=== PATIENT | male | born 1960 | race Caucasian/White ===

== ENCOUNTER → 2021-04-25 | Emergency (ER) | payer BC, OTHER ==
[~2021-04-25] VITALS: Ht 177.8 cm; Wt 86.1 kg
[~2021-04-25] MED LIST: ACETAMINOPHEN 500 MG TAB (TYLENOL) PO ONE; ACHYD1T PO; CIPR-17 PO; CPR500T PO; HYOS0.1216 PO; IBP800T PO; NITR-33 PO; PHEN200T27 PO; TETANUS,DIPTH,PERTUSS P/F (BOOSTRIX) 0.5 ML VIAL IM ONE
--- OUTSIDE RECORDS SUMMARY | 2021-04-25 09:28 | XMS REPORT | Clinical Summary ---
Author Author [facility] Organization [facility] Address Unknown Phone Unavailable Care Team Providers Care Director Of Home Economics Name Role Phone Damian Esposito MD Unavailable Riya Townsend RN Unavailable Unavailable Steve Lowe RN Unavailable Unavailable Maureen Royal RN Unavailable Unavailable Janna CAIN PA-C, James R Unavailable [phone] Pamela Mcdaniel MD PCP Source Comments Some departments are not documenting in the electronic medical record. If you d o not see the information that you expected, contact Release of Information in [facility] Information Management department at [phone] for further assistan ce in locating additional records.[facility] Allergies Comments Active Allergy Reactions Severity Noted Date Dust SNEEZING 06/28/2013 Pollen SNEEZING 06/28/2013 Medications End Date Status Medication Sig Dispensed Refills Start Date Active enalapril (VASOTEC) 10 mg Take 10 mg by 0 tablet mouth every morning. Active amLODIPine (NORVASC) 5 mg Take 5 mg by 0 tablet mouth every morning. Active potassium citrate Take one 60 tablet 5 12/20/19 2 (UROCIT-K) 10 mEq (1,080 tablet by 1 mg) tablet mouth twice daily with meals. Take with food. Active Problems Problem Noted Date Kidney stone 09/02/2013 Nephrolithiasis Overview: Formatting of this note might be differ ent from the original. (L) Renal ESWL x3; Apr 2013 -- Jun. 201 4; Dr. Shah. (L) URS w/ Laser Lithotripsy, Stent Exc hange -- 07/16/2013; Dr. Esposito. (L) PCNL -- 09/03/2013; Dr. Esposito 11/22/13: Started on K Cit, Litholink re viewed Renal scan with lasix shows non-functio antonio left kidney, patient asymptomatic 04/14/14: KUB shows 4 mm and 6 mm kidne y stone 04/2015: CT scan shows multiple small l eft kidney and ureteral stones with atrophic left kidney. No right kidney stones. Creatinine stable, but slightly elevated at 1.33 06/2015: RBUS small cyst with otherwise normal appearance of the right kidney. Left kidney stable. Creatinine 1.64 (1.33). 10/2015: Cr 1.6, KUB stable 04/11/16: Creatinine 1.41. Ultrasound st able. Blood pressure better controlled. 11/04/16 - Creatinine 1.61. KUB stable. Asymptomatic 05/19/2016: Creatinine pending. Ultrasoun d stable. Blood pressure better controlled on Amlodipine/Lisinopril. No recent kidney stones. 05/25/18: Patient with stable creatinine at 1.24. No pain. Ultrasound stable. Blood pressure better controll ed. 05/24/2019: Patient with slightly elevat ed creatinine to 1.55, but he did go skiing last week and may not have staye d well hydrated. Ultrasound stable with increased atrophy of kidney. No s tones on the right. 05/22/2020: Patient doing well. Blood pressure controlled. Creatinine 1.44. PSA normal at 0.42. Ultrasound without RIGHT stones. Atrophy of LEFT kidney. L ast Assessment & Plan: Formatting of this note might be differ ent from the original. Patient doing well. No issues. -- Continue urocit K -- Continue good fluid intake and low s odium -- F/U one year with labs (to include P SA and testosterone) and ultrasound -- All questions answered HTN (hypertension) Overview: Formatting of this note might be differ ent from the original. Patient with severe hypertension, but m ostly related to obstructed kidney with Steinstrasse. L ast Assessment & Plan: Formatting of this note might be differ ent from the original. Patient has not seen Dr. Weldon since s tarting blood pressure medications. His blood pressure is a little high toadam ay. -- F/U with Dr. Weldon for blood pressu re management -- Continue to monitor Surgical History Surgery Date Site/Laterality Comments HX VASECTOMY ~ 24 yrs ago HX TONSILLECTOMY ~ 1971 KIDNEY STONE SURGERY 2012 (L) Renal ESWL; D r. Alyssa KIDNEY STONE SURGERY 2012 (L) Renal ESWL; D r. Alyssa KIDNEY STONE SURGERY 2013 (L) Renal ESWL; D r. Alyssa KIDNEY STONE SURGERY 07/16/2013 (L) Ureteroscopy w/ Laser Lithotripsy, Stone Extraction; Dr. Esposito KIDNEY STONE SURGERY 09/03/2013 (L) PCNL; Dr. Fransisco kessler -- pending AR CYSTO W/SIMPLE REMOVAL 09/30/2013 STONE & STENT Medical History Medical History Date Comments Nephrolithiasis HTN (hypertension) Neurofibromatosis (HCC) Family History Medical History Relation Name Comments Hypertension Father Heart Disease Maternal Grandfather Hypertension Mother Relation Name Status Comments Father Maternal Grandfather Mother Social History Date Tobacco Use Types Packs/Day Years Used Never Smoker Smokeless Tobacco: Never Used Comments Alcohol Use Standard Drinks/Week Yes 1 (1 standard drink = 0.6 o z pure alcohol) Sex Assigned at Date Recorded Not on file Last Filed Vital Signs Reading Time Taken Comments Vital Sign 122/85 05/22/2020 12:53 PM [employer] Blood Pressure 85 05/22/2020 12:53 PM [employer] Pulse 36.7 C (98.1 F) 05/22/2020 12:53 PM [employer] Temperature - - Respiratory Rate 99% 09/04/2013 7:07 AM CDT Oxygen Saturation - - Inhaled Oxygen Concentration 88.9 kg (196 lb) 05/22/2020 12:53 PM [employer] Weight 175.3 cm (5' 9") 05/22/2020 12:53 PM [employer] Height 28.94 05/22/2020 12:53 PM [employer] Body Mass Index Plan of Treatment Health Maintenance Due Date Last Done Comments HIV SCREENING 08/22/1975 DTAP/TDAP VACCINES (1 - 1978 Tdap) HEPATITIS C SCREENING 1978 PHYSICAL (COMPREHENSIVE) 1978 EXAM COLORECTAL CANCER 2010 SCREENING SHINGLES RECOMBINANT 2010 VACCINE (1 of 2) INFLUENZA VACCINE 12/10/2020 Results Not on filefrom Last 3 Months Insurance Type Payer Benefit Subscriber ID Effective Phone Address Plan / Dates Group [facility] [place] [id number] 2020-P [phone] [id number] [facility] [place] [phone] 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 needed Care Teams Start Date End Date Director Of Home Economics Relationship Specialty 05/22/20 Pamela Mcdaniel MD PCP - [address] [place] [address] 06/28/13 Damian Esposito MD Urology [address] [facility] [address] [place] [address] 07/02/13 Ryia Townsend, RN 07/16/13 Steve Lowe, OLLIE 08/10/13 Maureen Royal, OLLIE 08/22/13 Monty Saldivar III, Urology PA-[facility] [address] [facility] [address] [place] [address]
[2021-04-25 10:07] LABS: BASOPHILS % (AUTO) 0 % (0-10); EOSINOPHILS % (AUTO) 0 % (0-10); HEMATOCRIT 44 % (40-54); HEMOGLOBIN 15.2 g/dL (13.3-17.7); LYMPHOCYTES # (AUTO) 2.8 10^3/uL (1.0-4.0); LYMPHOCYTES % (AUTO) 31 % (12-44); MEAN CORPUSCULAR HEMOGLOBIN 31 pg (25-34); MEAN CORPUSCULAR HGB CONC 35 g/dL (32-36); MEAN CORPUSCULAR VOLUME 89 fL (80-99); MEAN PLATELET VOLUME 8.7 fL (9.0-12.2); MONOCYTES # (AUTO) 0.8 10^3/uL (0.0-1.0); MONOCYTES % (AUTO) 9 % (0-12); NEUTROPHILS # (AUTO) 5.3 10^3/uL (1.8-7.8); NEUTROPHILS % (AUTO) 59 % (42-75); PLATELET COUNT 318 10^3/uL (130-400)
[2021-04-25 10:22] LABS: ALBUMIN 4.2 GM/DL (3.2-4.5); BILIRUBIN,TOTAL 0.9 MG/DL (0.1-1.0); CALCIUM 9.4 MG/DL (8.5-10.1); CREATININE SERUM 1.52 MG/DL (0.60-1.30); POTASSIUM 3.8 MMOL/L (3.6-5.0); TOTAL PROTEIN 7.6 GM/DL (6.4-8.2)
--- NOTE | 2021-04-25 10:42 | Diagnostic Imaging Report ---
PROCEDURE: CT head, face, and cervical spine without contrast. TECHNIQUE: Multiple contiguous axial images were obtained through the head, neck, and facial bones without the use of intravenous contrast. Sagittal and coronal reformations through the cervical spine and facial bones were also performed. Auto Exposure Controls were utilized during the CT exam to meet ALARA standards for radiation dose reduction. INDICATION: Headache, fall; head, neck and face injury. COMPARISON: None. CT head: Ventricles are normal in size, shape and position. There is no midline shift or mass effect. There is no hemorrhage or evidence of acute ischemia. No extra axial fluid collection or mass is identified. There is no skull fracture. The mastoids and paranasal sinuses are clear. IMPRESSION: Negative CT head. CT face: There is chronic deviation of the nasal septum. The orbits are symmetric. The mandible is intact. The paranasal sinuses and mastoids are clear. There are no air-fluid levels to suggest hemorrhage. IMPRESSION: No facial fracture identified. CT cervical spine: Alignment is normal. There is no subluxation or fracture. Mild degenerative changes are present. There is no osseous lesion. Soft tissues are intact. IMPRESSION: No traumatic malalignment or fracture. Dictated by: Dictated on workstation # [id number]
--- NOTE | 2021-04-25 10:45 | Diagnostic Imaging Report ---
INDICATION: Fall, pelvic pain, hip pain. COMPARISON: None. FINDINGS: A single view of the pelvis demonstrates no fracture or dislocation. The articular surfaces are normal. No osseous lesion. IMPRESSION: No fracture identified. Dictated by: Dictated on workstation # [id number]
--- NOTE | 2021-04-25 10:46 | Diagnostic Imaging Report ---
INDICATION: Fall, chest pain COMPARISON: None. FINDINGS: Single view the chest demonstrates clear lungs bilaterally. The heart is normal. There is no pneumothorax but osseous structures normal. IMPRESSION: Negative chest. Dictated by: Dictated on workstation # [id number]
--- NOTE | 2021-04-25 10:55 | ED Trauma-Multisystem ---
General Chief Complaint: Trauma-Non Activation Stated Complaint: LOC, FACIAL LAC,L GROIN PAIN, FELL OFF ROOF Nursing Triage Note: patient arrives pov from scene of injury with a reported fall from a 12 foot roof. It is reported by spouse that patient passed out and fell off of the roof landing on his face. Patient is alert and oriented x2, but has no recolection of what happened or why he fell. c/o pain in his left groin and upper lip pain, dried blood is noted to patient bilateral hands with no obvious injury. Source of Information: Patient, Family Exam Limitations: No Limitations History of Present Illness Date Seen by Provider: Apr 25, 2021 Time Seen by Provider: 09:30 Initial Comments Patient is a 60-year-old male who presents to the emergency room by private vehicle from the scene in which he was doing some jim about 12 feet off the ground, possibly syncope and fell versus fell and had loss of consciousness. Patient does not recall any of the details of the event. He initially is alert and oriented on my evaluation. He does have some anterior facial pain to his nose and upper lip. He complains of some left groin discomfort. No back pain, abdominal pain, chest pain. He apparently did have a bit of a nosebleed prior to arrival. Cannot recall last tetanus immunization. Has a history of hypertension, states he is not on any blood thinners. His is available for further history. States that he was jim with 2 of their sons and she plans to get more information from them. He is not nauseous, no vomiting. Does complain of a mild headache. Arrives and is placed in a cervical collar. Is quite anxious with a collar in place. No recent illnesses. No fevers chills, cough or congestion. No Covid concerns. Solitary kidney. Follows with a pulmonary disease specialist at . All other review of systems reviewed and negative except as stated. Occurred: Just Prior to Arrival Severity: Mild Pain/Injury Location: Face, Pelvis (left groin) Loss of Consciousness: Brief (Seconds) Associated Symptoms (Fall): Confusion, Other (headache) Allergies and Home Medications Allergies Coded Allergies: No Known Drug Allergies (Unverified , 04/16/13) Patient Home Medication List Home Medication List Reviewed: Yes Hydrocodone Bit/Acetaminophen (Lorcet Plus 10/325 Mg) 1 Tab Tablet, 1-2 TAB PO Q4H PRN for PAIN Prescribed by: JUDY GEIGER on 04/21/13 1217 Hyoscyamine Sulfate (Levsin 0.125 Mg Tab) 0.125 Mg Tab, 1-2 EACH PO Q4H PRN for SPASMS Prescribed by: JUDY GEIGER on 04/21/13 1217 Ibuprofen (Motrin) 800 Mg Tablet, 800 MG PO Q6H PRN for PAIN, (Reported) Entered as Reported by: CHULA DELCID on 04/16/13 1058 Nitrofurantoin Macrocrystals (Macrodantin) 100 Mg Capsule, 1 EACH PO BID, (Reported) Entered as Reported by: JARED HODGES on 05/19/13 0916 Phenazopyridine Hcl (Pyridium) 200 Mg Tablet, 1 EACH PO TID PRN for SPASMS Prescribed by: JUDY GEIGER on 04/21/13 1217 Review of Systems Review of Systems Constitutional: see HPI Eyes: No Symptoms Reported Ears: No Symptoms Reported Nose: Pain Mouth: Other (upper lip) Throat: No Symptoms to Report Respiratory: no symptoms reported Cardiovascular: No Symptoms Reported Gastrointestinal: no symptoms reported Genitourinary: no symptoms reported Musculoskeletal: joint pain (left groin) Skin: no symptoms reported Psychiatric/Neurological: Anxiety All Other Systems Reviewed Negative Unless Noted: Yes Physical Exam Vital Signs Vital Signs - First Documented Height, Weight, BMI Height: '" Weight: 195lbs. oz. 88.806516ub; 27.00 BMI Method: General Appearance: WD/WN, Anxious Head: No Evidence of Injury Eyes: Bilateral Eye Normal Inspection, Bilateral Eye PERRL, Bilateral Eye EOMI Ears, Nose, Throat: Hearing Grossly Normal, No Evidence of ENT Injury, No Dental Injury, Other (A little bit of swelling, erythema abrasion noted over the nasal bridge, swelling and contusion to the upper lip. Patient states that teeth fit together well, demonstrates active range of motion of the jaw without discomfort. No intraoral injury is identified) Neck: Normal Inspection, Other (Patient examined initially in a cervical collar, no midline tenderness) Cardiovascular: Regular Rate, Rhythm, Normal Peripheral Pulses Respiratory: Lungs Clear, Normal Breath Sounds, No Accessory Muscle Use, No Respiratory Distress Gastrointestinal: Normal Bowel Sounds, Soft, Tenderness (Left inguinal region) Genital/Rectal: Normal Genital Exam; No Blood at Uretheral Meatus; Other (No scrotal hematomas are noted) Back: Normal Inspection, No Vertebral Tenderness Extremity: Normal Capillary Refill, Normal Inspection, Normal Range of Motion, Non Tender, No Calf Tenderness Neurologic/Psychiatric: Alert, Oriented x3, No Motor/Sensory Deficits, Normal 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, 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 Norm as Tested Skin: Normal Color, Warm/Dry Nori Coma Score Best Eye Response (Eastern): (4) Open Spontaneously Best Verbal Response (Eastern): (5) Oriented Best Motor Response (Eastern): (6) Obeys Commands Progress/Results/Core Measures Results/Orders Lab Results Laboratory Tests Test 04/25/21 09:30 04/25/21 11:18 Range/Units White Blood Count 9.0 4.3-11.0 10^3/uL Red Blood Count 4.91 4.30-5.52 10^6/uL Hemoglobin 15.2 13.3-17.7 g/dL Hematocrit 44 40-54 % Mean Corpuscular Volume 89 80-99 fL Mean Corpuscular Hemoglobin 31 25-34 pg Mean Corpuscular Hemoglobin Concent 35 32-36 g/dL Red Cell Distribution Width 12.0 10.0-14.5 % Platelet Count 318 130-400 10^3/uL Mean Platelet Volume 8.7 L 9.0-12.2 fL Immature Granulocyte % (Auto) 0 % Neutrophils (%) (Auto) 59 42-75 % Lymphocytes (%) (Auto) 31 12-44 % Monocytes (%) (Auto) 9 0-12 % Eosinophils (%) (Auto) 0 0-10 % Basophils (%) (Auto) 0 0-10 % Neutrophils # (Auto) 5.3 1.8-7.8 10^3/uL Lymphocytes # (Auto) 2.8 1.0-4.0 10^3/uL Monocytes # (Auto) 0.8 0.0-1.0 10^3/uL Eosinophils # (Auto) 0.0 0.0-0.3 10^3/uL Basophils # (Auto) 0.0 0.0-0.1 10^3/uL Immature Granulocyte # (Auto) 0.0 0.0-0.1 10^3/uL Sodium Level 138 135-145 MMOL/L Potassium Level 3.8 3.6-5.0 MMOL/L Chloride Level 105 98-107 MMOL/L Carbon Dioxide Level 23 21-32 MMOL/L Anion Gap 10 5-14 MMOL/L Blood Urea Nitrogen 19 H 7-18 MG/DL Creatinine 1.52 H 0.60-1.30 MG/DL Estimat Glomerular Filtration Rate 47 BUN/Creatinine Ratio 13 Glucose Level 121 H 70-105 MG/DL Calcium Level 9.4 8.5-10.1 MG/DL Corrected Calcium 9.2 8.5-10.1 MG/DL Total Bilirubin 0.9 0.1-1.0 MG/DL Aspartate Amino Transf (AST/SGOT) 27 5-34 U/L Alanine Aminotransferase (ALT/SGPT) 33 0-55 U/L Alkaline Phosphatase 80 40-136 U/L Total Protein 7.6 6.4-8.2 GM/DL Albumin 4.2 3.2-4.5 GM/DL Urine Color YELLOW Urine Clarity CLEAR Urine pH 7.0 5-9 Urine Specific [place] 1.020 1.016-1.022 Urine Protein TRACE H NEGATIVE Urine Glucose (UA) NEGATIVE NEGATIVE Urine Ketones 1+ H NEGATIVE Urine Nitrite NEGATIVE NEGATIVE Urine Bilirubin NEGATIVE NEGATIVE Urine Urobilinogen 0.2 < = 1.0 MG/DL Urine Leukocyte Esterase NEGATIVE NEGATIVE Urine RBC (Auto) NEGATIVE NEGATIVE Urine RBC NONE /HPF Urine WBC RARE /HPF Urine Crystals NONE /LPF Urine Bacteria NEGATIVE /HPF Urine Casts NONE /LPF Urine Mucus SMALL H /LPF Urine Culture Indicated NO My Orders Orders - LORIE FRANCISCO MD Chest 1 View, Ap/Pa Only (04/25/21 09:48) Cbc With Automated Diff (04/25/21 09:48) Comprehensive Metabolic Panel (04/25/21 09:48) Ua Culture If Indicated (04/25/21 09:48) Ekg Tracing (04/25/21 09:48) Pelvis (04/25/21 09:48) Dipht,Pertuss(Acell),Tet Adult (Boostrix (04/25/21 10:00) Ct Head/Face/Cervical Wo (04/25/21 09:48) Acetaminophen Tablet (Tylenol Tablet) (04/25/21 11:15) Vital Signs/I&O 04/25/21 04/25/21 09:25 09:25 Temp 36.6 36.6 Pulse 91 91 Resp 20 20 B/P (MAP) 127/90 (102) 127/90 (102) Pulse Ox 97 97 O2 Delivery Room Air Room Air Blood Pressure Mean: 102 Progress Progress Note : Time: 10:58 Progress Note Patient reexamined, CT shows no fractures of the facial bones, cervical spine and no acute intracranial abnormalities. Chest x-ray and pelvis are also clear. Cervical collar is removed. Patient has a little bit of discomfort in the paraspinous muscles bilaterally with rotation of the head. No neurologic deficits are noted on exam. states further history from their sons who were witnesses to the fall was that he was kneeling on the roof as they were throwing shingles up to him. The next thing they knew when they looked up he had slumped forward and rolled off the roof. Unsure if he had stood first and got lightheaded and fell or if he just had been bent over so long he had a vagal response, passed out and fell. Patient cannot recall any details of the entire event. He is neurologically normal, his EKG is unremarkable for any ectopy or ST segment change. His vital signs have been stable. Labs have been reviewed and are within normal limits. My plan is to get him up and ambulate him around the department, if he does this without incident we can discharge him to home to follow-up with his primary care physician. Initial ECG Impression Date: Apr 25, 2021 Initial ECG Impression Time: 09:56 Initial ECG Rate: 106 Initial ECG Rhythm: S.Tach Initial ECG Intervals: Normal Initial ECG Impression: Normal Diagnostic Imaging Diagonstic Imaging: Xray, CT Plain Films/CT/US/NM/MRI: facial bones, chest, c-spine, head Comments [facility], [place] NAME: LIZANDRO LENNON [facility] REC#: [id number] PT STATUS: REG ER : 1960 PHYSICIAN: LORIE FRANCISCO MD ADMIT DATE: 04/25/21/ER Draft Date of Exam:04/25/21 CT HEAD/FACE/CERVICAL WO PROCEDURE: CT head, face, and cervical spine without contrast. TECHNIQUE: Multiple contiguous axial images were obtained through the head, neck, and facial bones without the use of intravenous contrast. Sagittal and coronal reformations through the cervical spine and facial bones were also performed. Auto Exposure Controls were utilized during the CT exam to meet ALARA standards for radiation dose reduction. INDICATION: Headache, fall; head, neck and face injury. COMPARISON: None. CT head: Ventricles are normal in size, shape and position. There is no midline shift or mass effect. There is no hemorrhage or evidence of acute ischemia. No extra axial fluid collection or mass is identified. There is no skull fracture. The mastoids and paranasal sinuses are clear. IMPRESSION: Negative CT head. CT face: There is chronic deviation of the nasal septum. The orbits are symmetric. The mandible is intact. The paranasal sinuses and mastoids are clear. There are no air-fluid levels to suggest hemorrhage. IMPRESSION: No facial fracture identified. CT cervical spine: Alignment is normal. There is no subluxation or fracture. Mild degenerative changes are present. There is no osseous lesion. Soft tissues are intact. IMPRESSION: No traumatic malalignment or fracture. Dictated on workstation # [id number] Dict: 04/25/21 1034 Trans: 04/25/[address] [place] [id number] Interpreted by: FABRICIO HENRIQUEZ Electronically signed by: [employer] [facility] [place], [place] NAME: CITLALLILIZANDRO Marjorie MED REC#: [id number] PT STATUS: REG ER : 1960 PHYSICIAN: LORIE FRANCISCO MD ADMIT DATE: 04/25/21/ER Draft Date of Exam:04/25/21 PELVIS INDICATION: Fall, pelvic pain, hip pain. COMPARISON: None. FINDINGS: A single view of the pelvis demonstrates no fracture or dislocation. The articular surfaces are normal. No osseous lesion. IMPRESSION: No fracture identified. Dictated on workstation # [id number] Dict: 04/25/21 1044 Trans: 04/25/21 1045 [id number] Interpreted by: FABRICIO HENRIQUEZ Electronically signed by: [employer] [facility] [place] [place] NAME: CITLALLILIZANDRO [facility] REC#: [id number] PT STATUS: REG ER : 1960 PHYSICIAN: LORIE FRANCISCO MD ADMIT DATE: 04/25/21/ER Draft Date of Exam:04/25/21 CHEST 1 VIEW, AP/PA ONLY INDICATION: Fall, chest pain COMPARISON: None. FINDINGS: Single view the chest demonstrates clear lungs bilaterally. The heart is normal. There is no pneumothorax but osseous structures normal. IMPRESSION: Negative chest. Dictated on workstation # [id number] Dict: 04/25/21 1044 Trans: 04/25/21 1046 [facility] [id number] Interpreted by: FABRICIO HENRIQUEZ Electronically signed by: Departure Impression Primary Impression: Facial contusion Qualified Codes: S00.83XA - Contusion of other part of head, initial encounter Additional Impressions: Strain of left groin Brief loss of consciousness Fall from roof as cause of accidental injury Disposition: HOME, SELF-CARE Condition: Stable Departure-Patient Inst. Decision time for Depature: 11:51 Referrals: NO,LOCAL PHYSICIAN (PCP/Family) Primary Care Physician Patient Instructions: Closed Head Injury (DC), Groin Strain (DC) Add. Discharge Instructions: Take Tylenol, extra strength 2 tablets every 6 hours as needed for aches and pains. You can apply alternating ice and heat packs to the left groin for discomfort. Stay up and ambulatory to help keep muscles, ligaments and tendons mobile. If you develop any worsening headache especially associated with nausea, vomiting, confusion please come back to the emergency room for reevaluation. Follow-up with your primary care and your pulmonary disease specialist at as scheduled. LORIE FRANCISCO MD Apr 25, 2021 10:55
[2021-04-25 11:21] LABS: BILIRUBIN,URINE NEGATIVE (NEGATIVE); CLARITY,URINE CLEAR; COLOR,URINE YELLOW; GLUCOSE, URINE (UA) NEGATIVE (NEGATIVE); KETONES,URINE 1+ (NEGATIVE); LEUKOCYTE ESTERASE ,URINE NEGATIVE (NEGATIVE); NITRITE,URINE NEGATIVE (NEGATIVE); PROTEIN,URINE TRACE (NEGATIVE)
[2021-04-25 11:29] LABS: BACTERIA,URINE NEGATIVE /HPF; WBC,URINE RARE /HPF
[2021-04-25 12:10] VITALS: BP 133/89
== END ==
LOC: EDUNIT# 09:18 → ER 09:21
DX: S76.812A Strain of other specified muscles, fascia and tendons at thigh level, left thigh, initial encounter (principal); S00.531A Contusion of lip, initial encounter; S00.31XA Abrasion of nose, initial encounter; R55 Syncope and collapse; I10 Essential (primary) hypertension; Z23 Encounter for immunization; W13.2XXA Fall from, out of or through roof, initial encounter
CPT/HCPCS: 36415; 70450; 70486; 71045; 72125; 72170; 80053; 81000; 85025; 93005